=== PATIENT | female | born 1990 | race African-American/Black ===

== ENCOUNTER 2019-12-10 16:35 | Emergency (ER) | payer OTHER ==
[2019-12-10 17:14] LABS: ABS Basophils 0.1 10^3/ul (0-0.2); ABS Eosinophils 0.1 10^3/ul (0-0.6); ABS Monocytes 0.4 10^3/ul (0-0.8); ABS Neutrophils 3.9 10^3/ul (1.5-7.7); Eosinophil % 1.9 %; Hematocrit 33 % (35-47); Hemoglobin 11.6 g/dL (12.0-16.0); Lymphocyte % 30.4 %; Mean Corpuscular HGB Conc 35 g/dL (31-36); Mean Corpuscular Hemoglobin 31 pg (27-31); Mean Corpuscular Volume 89 fL (80-97); Mean Platelet Volume 7.6 fL (7.4-10.4); Platelet Count 252 10^3/uL (150-450); Red Blood Count 3.72 10^6 /uL (3.70-4.87); Red Cell Distribution Width 13 % (10-15); White Blood Count 6.5 10^3/uL (3.5-10.8)
--- NOTE | 2019-12-10 17:14 | ED ---
GI/ HPI - HPI Summary HPI Summary: Patient is a 29 y/o F who is currently six weeks presents to [facility] with complaints of abdominal cramping, back pain, and creamy vaginal discharge. She states that she has been experiencing abdominal cramping typically at night when she is getting ready to lie down. At around 1400 12/10/19, she had onset of back pain. Vaginal discharge is noted but she denies vaginal bleeding. Patient claims that she was diagnosed with BV but has not been prescribed any medications. She is A1 with miscarriage in June of 2019. She is concerned for miscarriage. LNMP was November 02. OBGYN did bloodwork within past week. She has not had US yet. Fever, chills, N/V/D are denied. Constipation is endorsed but patient notes that she had BM this morning. Patient states that urinating aggravates abdominal pain. No PMHx, no PSHx, no tobacco, alcohol, or substance usage. Patient is taking vitamins. She has not had flu shot this season. Home medications and allergies are reviewed. is present in the room. - History of Current Complaint Chief Complaint: EDBackInjuryPain Time Seen by Provider: 12/10/19 16:42 Stated Complaint: CRAMPING/BACK PAIN 6WKS PREG PER PT Hx Obtained From: Patient Onset/Duration: Still Present Severity: Moderate Current Severity: Moderate Pain Intensity: 6 Location of Pain: Other - abdomen, back Pain Characteristics: Cramping Associated Signs and Symptoms: Positive: Back Pain, Constipation, Abdominal Pain , Other: - negative - chills. Negative: Nausea, Vomiting, Diarrhea, Fever Additional Signs & Symptoms: Positive: Vaginal Discharge. Negative: Vaginal Bleeding Aggravating Factor(s): Urination - Allergy/Home Medications Allergies/Adverse Reactions: Allergies Allergy/AdvReac Type Severity Reaction Status Date / Time No Known Allergies Allergy Verified 07/08/19 07:42 PMH/Surg Hx/FS Hx/Imm Hx Endocrine/Hematology History: Denies: Hx Diabetes Cardiovascular History: Denies: Hx Hypertension, Hx Pacemaker/ICD Respiratory History: Denies: Hx Asthma History: Denies: Hx Renal Disease Sensory History: Denies: Hx Hearing Aid Psychiatric History: Denies: Hx Panic Disorder - Immunization History Date of Tetanus Vaccine: PT STATES UNSURE Date of Influenza Vaccine: NONE Infectious Disease History: No Infectious Disease History: Denies: Hx Clostridium Difficile, Hx Hepatitis, Hx Human Immunodeficiency Virus (HIV), Hx of Known/Suspected MRSA, Hx Shingles, Hx Tuberculosis, Hx Known/ Suspected VRE, Hx Known/Suspected VRSA, History Other Infectious Disease, Traveled Outside the [place] in Last 30 Days - Family History Known Family History: Negative: Cardiac Disease, Hypertension, Diabetes - Social History Alcohol Use: None Hx Substance Use: No Substance Use Type: Reports: None Hx Tobacco Use: No Smoking Status (MU): Never Smoked Tobacco Review of Systems Negative: Fever, Chills Gastrointestinal: Other - positive - constipation Positive: Abdominal Pain. Negative: Vomiting, Diarrhea, Nausea Genitourinary: Other - no vaginal bleeding Positive: discharge - vaginal Musculoskeletal: Other - positive - back pain All Other Systems Reviewed And Are Negative: Yes Physical Exam - Summary Physical Exam Summary: Constitutional: Well-developed, Well-nourished, Alert. (-) Distressed Skin: Warm, Dry HENT: Normocephalic; Atraumatic Eyes: Conjunctiva normal Neck: Musculoskeletal ROM normal neck. (-) JVD, (-) Stridor, (-) Tracheal deviation Cardio: Rhythm regular, rate normal, Heart sounds normal; Intact distal pulses; Radial pulses are 2+ and symmetric. (-) Murmur Pulmonary/Chest wall: Effort normal. (-) Respiratory distress, (-) Wheezes, (-) Rales Abd: Soft, (+) suprapubic tenderness, (-) Distension, (-) Guarding, (-) Rebound : Moderate amount of thick white vaginal discharge noted. Cervical os is closed. No CMT noted. Musculoskeletal: (-) Edema Lymph: (-) Cervical adenopathy Neuro: Alert, Oriented x3 Psych: Mood and affect Normal Triage Information Reviewed: Yes Vital Signs On Initial Exam: Initial Vitals Temp Pulse Resp BP Pulse Ox 97.8 F 89 18 105/71 100 12/10/19 16:36 12/10/19 16:36 12/10/19 16:36 12/10/19 16:36 12/10/19 16:36 Vital Signs Reviewed: Yes Procedures - Sedation Patient Received Moderate/Deep Sedation with Procedure: No Diagnostics - Vital Signs Vital Signs Temp Pulse Resp BP Pulse Ox 12/10/19 16:36 97.8 F 89 18 105/71 100 - Laboratory Result Diagrams: 12/10/19 17:01 12/10/19 17:01 Lab Statement: Any lab studies that have been ordered have been reviewed, and results considered in the medical decision making process. - Ultrasound TRANSVAGINAL US Ultrasound Interpretation Completed By: Radiologist Summary of Ultrasound Findings: IMPRESSION: #. Very early IUP with estimated gestational age of 5 weeks 3 days based on mean. gestational sac diameter. Very early pole and yolk sac visible. No perigestational. hemorrhage evident. Negative for suspicious adnexal region lesions. THIS REPORT WAS REVIEWED BY ED PHYSICIAN. GIGU Course/Dx - Course Course Of Treatment: Patient is here with lower abdominal cramping and back pain in the setting of . Patient thinks she is roughly 6 weeks . Patient has been seen by an VACUUM CLEANER REPAIRER with blood or perform an ultrasound. Patient is overall well-appearing and hemodynamically stable. Patient had blood performed which showed a beta hCG level greater than 10,000. Patient had an ultrasound which showed an IUP with no evidence of ectopic . Patient has a closed cervix on vaginal exam. Patient was diagnosed with BV and November by her VACUUM CLEANER REPAIRER but not treated for that. Patient clinically has BV and will be started on Flagyl. - Diagnoses Provider Diagnoses: Lower back pain, Intrauterine Discharge ED - Sign-Out/Discharge Documenting (check all that apply): Patient Departure - discharge - Discharge Plan Condition: Stable Disposition: HOME Prescriptions: metroNIDAZOLE TAB* [Flagyl 250 mg TAB*] 250 mg PO TID 7 Days #21 tab Patient Education Materials: (ED), Back Pain (ED) Referrals: Tiff Hassan MD [Medical Doctor] - Additional Instructions: PLEASE RETURN TO ED FOR SEVERE ABDOMINAL PAIN, VAGINAL BLEEDING, OR FEELING LIKE YOU ARE GOING TO PASS OUT. TAKE ANTIBIOTICS PRESCRIBED AND FOLLOW UP WITH YOUR OBGYN WITHIN THE NEXT THREE DAYS. - Billing Disposition and Condition Condition: STABLE Disposition: Home - Attestation Statements Document Initiated by Taina: Yes Documenting Scribe: ENE SIMMS Provider For Whom Taina is Documenting (Include Credential): ATTILA PELAYO MD Scribe Attestation: ENE Bernstein, scribed for ATTILA PELAYO MD on 12/10/19 at 1848. Scribe Documentation Reviewed: Yes Provider Attestation: The documentation as recorded by the ENE martinez accurately reflects the service I personally performed and the decisions made by me, ATTILA PELAYO MD Status of Taina Document: Viewed
[2019-12-10 17:25] LABS: BUN/Creatinine Ratio 17.3 (8-20); Calcium 9.2 mg/dL (8.6-10.3); EGFR African American 110.5 (>60); EGFR Non-African American 91.4 (>60); Potassium 3.6 mmol/L (3.5-5.0)
--- OUTSIDE RECORDS SUMMARY | 2019-12-10 17:43 | XMS REPORT | Summary of Care ---
:1990 Author Organization [facility] Address [address] [place] [address] Care Team Providers Name Role Phone Aleena Faulkner Primary Care Provider Reason for Visit Reason Comments Sore Throat pt states sore throat for 2 days and some neck stiffness Encounter Details Date Type Department Care Team Description 10/28/2019 Office Visit [facility], Esperanza, Amenorrhea (Primary Dx); Practice PAAnnalise Sore throat; [address] Malaise and fatigue [place], [place] [address] [place] [address] [phone] Allergies No Known Allergiesdocumented as of this encounter (statuses as of 10/28/2019) Medications Medication Sig Dispensed Refills Start Date End Date Status benzoyl peroxide 1 Appl by Topical 42.5 g 1 05/06/2017 Active 5 % Apply route EVERY externally MORNING. Use 15 GelIndications: minutes after Acne vulgaris Erythromycin FERROUS SULFATE Take by mouth. 0 Active ER PO LETROZOLE PO Take by mouth. 0 Active nabumetone Take 1 Tab by 60 Tab 0 08/08/2019 Discontinued (RELAFEN) 500 MG mouth TWICE DAILY. 9 Oral Tab bacitracin-zinc 0.9 g by Topical 1 Tube 0 08/08/2019 Discontinued 500 UNIT/GM route TWICE DAILY. 9 Apply externally Ointment documented as of this encounter (statuses as of 10/28/2019) Active Problems No known active problemsdocumented as of this encounter (statuses as of 2018) Social History Tobacco Use Types Packs/Day Years Used Date Never Smoker 0 Smokeless Tobacco: Never Used Alcohol Use Drinks/Week oz/Week Comments No Sex Assigned at Date Recorded Not on file Job Start Date Occupation Industry Not on file Not on file Not on file Travel History Travel Start Travel End No recent travel history available. documented as of this encounter Last Filed Vital Signs Vital Sign Reading Time Taken Comments Blood Pressure 98/64 10/28/2019 4:10 PM EST Pulse 88 10/28/2019 4:10 PM EST Temperature 35.6 10/28/2019 4:10 PM EST C (96 F) Respiratory Rate - - Oxygen Saturation 98% 10/28/2019 4:10 PM EST Inhaled Oxygen Concentration - - Weight 59.9 kg (132 lb) 10/28/2019 4:10 PM EST Height 162.6 cm (5' 4") 10/28/2019 4:10 PM EST Body Mass Index 22.66 10/28/2019 4:10 PM EST documented in this encounter Patient Instructions Patient InstructionsDodgEsperanza vick PA-C - 10/28/2019 4:00 PM EST1. ordered HCG serum -- will do now -- will call with results 2. .Will send throat swab to lab for culture, will call with results Avoid creamy foods and drink Rest, gargle with warm salt water Push water, soup, juice, tea with honey/lemon OTC Tylenol/Ibuprofen for fever/pain Cool mist vaporizer at bedtime 3. Ordered labs -- will do now -- will call with results Call if not improving or with any questions or concerns documented in this encounter Progress Notes Esperanza Baldwin PA-C - 10/28/2019 4:00 PM EST PATIENT: Leanna Vieyra : 1990 DATE OF SERVICE: 10/28/2019 REFERRING PRACTITIONER: Self-Referred PRIMARY CARE PROVIDER: Aleena Faulkner CHIEF COMPLAINT: Chief Complaint Patient presents with Sore Throat pt states sore throat for 2 days and some neck stiffness Subjective HISTORY OF PRESENT ILLNESS: Leanna Vieyra is a 29-y.o. female who presents with sore throat, neck stiffness, nasal congestionx 2 days NOT SURE IF LMP: 10/05/19, Trying to get Heat gives relief of neck stiffness Home heat is hot, forced air, not using humidifier Denies fever, chills, nausea, vomiting, diarrhea, chest pains, SOB No past medical history on file. No past surgical history on file. No family history on file. Current Outpatient Medications Medication Sig benzoyl peroxide 5 % Apply externally Gel 1 Appl by Topical route EVERY MORNING. Use 15 minutes after Erythromycin FERROUS SULFATE ER PO Take by mouth. LETROZOLE PO Take by mouth. No current facility-administered medications for this visit. No Known Allergies Social History Socioeconomic History Marital status: Single Spouse name: Not on file Number of children: Not on file Years of education: Not on file Highest education level: Not on file Occupational History Not on file Social Needs Financial resource strain: Not on file Food insecurity Worry: Not on file Inability: Not on file Transportation needs Medical: Not on file Non-medical: Not on file Tobacco Use Smoking status: Never Smoker Smokeless tobacco: Never Used Substance and Sexual Activity Alcohol use: No Drug use: No Sexual activity: Yes Partners: Male Lifestyle Physical activity Days per week: Not on file Minutes per session: Not on file Stress: Not on file Relationships Social connections Talks on phone: Not on file Gets together: Not on file Attends jewish service: Not on file Active member of club or organization: Not on file Attends meetings of clubs or organizations: Not on file Relationship status: Not on file Intimate partner violence Fear of current or ex partner: Not on file Emotionally abused: Not on file Physically abused: Not on file Forced sexual activity: Not on file Other Topics Concern Not on file Social History Narrative Works for [employer] and eyes are ok - REVIEW OF SYSTEMS: Skin: negative skin lesions Eyes: negative visual blurring Ears/Nose/Throat: positive rhinorrhea, sore throat, post nasal drip Respiratory: negative cough Cardiovascular: negative chest pain Gastrointestinal: negative abdominal pain, constipation, diarrhea, nausea or vomiting Genitourinary: negative burning on urination, dysuria or vaginal discharge Musculoskeletal: negative arthritis/joint pain. Positive stiff neck Neurologic: negative numbness or tingling of feet or hands Psychiatric: negative anxiety Hematologic/Lymphatic/Immunologic: negative allergies Endocrine: negative diabetes or hot flashes/sweats Objective PHYSICAL EXAMINATION: VITALS: BP 98/64 (BP Location: Right arm, Patient Position: Sitting) | Pulse 88 | Temp 96 F (35.6 C) | Ht 5' 4" (1.626 m) | Wt 132 lb (59.9 kg) | SpO2 98% | BMI 22.66 kg/m Body massindex is 22.66 kg/m. General appearance: alert, mild distress, cooperative, oriented times 3 Skin: Skin color, texture, turgor normal. No rashes or lesions. Head: Normocephalic. No masses, lesions, tenderness or abnormalities Eyes: conjunctivae/corneas clear. PERRL, EOM's intact. Ears: TMs and and canals normal bilaterally Nose/Sinuses: mucosa normal, no rhinorrhea Oropharynx: positive findings: mild oropharyngeal erythema, 1 small white exudate right tonsil Neck: Neck supple, FROM. No cervical or supraclavicular adenopathy. Lungs: Lungs clear. Chest symmetrical. Normal breath sounds. Heart: RRR. No murmur, clicks or gallops. No peripheral edema Rapid strep: negative . IMPRESSION: ICD-9-CM ICD-10-CM 1. Amenorrhea 626.0 N91.2 HCG QUALITATIVE SERUM HCG QUALITATIVE SERUM 2. Sore throat 462 J02.9 STREP A ANTIGEN (AMB POCT) THROAT STREP SCREEN CULTURE 3. Malaise and fatigue 780.79 R53.81 CBC WITH DIFFERENTIAL R53.83 COMPREHENSIVE METABOLIC PANEL COMPREHENSIVE METABOLIC PANEL CBC WITH DIFFERENTIAL Plan PLAN: 1. ordered HCG serum -- will do now -- will call with results 2. .Will send throat swab to lab for culture, will call with results Avoid creamy foods and drink Rest, gargle with warm salt water Push water, soup, juice, tea with honey/lemon OTC Tylenol/Ibuprofen for fever/pain Cool mist vaporizer at bedtime 3. Ordered labs -- will do now -- will call with results Call if not improving or with any questions or concerns Author: Esperanza Baldwin PA-C 10/28/2019 16:08 documented in this encounter Plan of Treatment Name Type Priority Associated Diagnoses Date/Time HCG QUALITATIVE SERUM Lab Routine Amenorrhea 10/28/2019 4:26 PM EST CBC WITH DIFFERENTIAL Lab Routine Malaise and fatigue 10/28/2019 4:26 PM EST COMPREHENSIVE METABOLIC Lab Routine Malaise and fatigue 10/28/2019 4:26 PM EST PANEL THROAT STREP SCREEN CULTURE Lab Routine Sore throat 10/28/2019 4:20 PM EST Name Type Priority Associated Diagnoses Order Schedule HCG QUALITATIVE SERUM Lab Routine Amenorrhea Expected: 10/28/2019 (Approximate), Expires: 10/28/2020 CBC WITH DIFFERENTIAL Lab Routine Malaise and fatigue Expected: 10/28/2019 (Approximate), Expires: 10/28/2020 COMPREHENSIVE METABOLIC Lab Routine Malaise and fatigue Expected: 2018 PANEL (Approximate), Expires: 10/28/2020 STREP A ANTIGEN (AMB POCT) POCT Routine Sore throat Ordered: 10/28/2019 THROAT STREP SCREEN Lab Routine Sore throat 1 Occurrences starting CULTURE 10/28/2019 until 04/25/2020 Health Maintenance Due Date Last Done Comments DTaP/Tdap/Td Vaccines (1 - Tdap) 2001 DEPRESSION SCREENING 2002 PAP SMEAR 2011 INFLUENZA VACCINE (#1) 2019 HEPATITIS A IMMUNIZATION SERIES Aged Out No longer eligible based on patient's age to complete this topic HPV IMMUNIZATION SERIES Aged Out No longer eligible based on patient's age to complete this topic MENINGOCOCCAL VACCINE IMM Aged Out No longer eligible based on patient's age to complete this topic PNEUMOCOCCAL 0-64 YRS Aged Out No longer eligible based on patient's age to complete this topic documented as of this encounter Results Not on filedocumented in this encounter Visit Diagnoses Diagnosis Amenorrhea Absence of menstruation Sore throat Acute pharyngitis Malaise and fatigue Other malaise and fatigue documented in this encounter Insurance Payer Benefit Plan / Subscriber ID Effective Dates Phone Address Type Group [facility] xxxxxxxxxxx 2015-Present Rocco Guarantor Name Account Type Relation to Date of Phone Billing Patient Address Leanna Vieyra Personal/Family 1990 [address] [phone] [place], [place] (Work) [id number] documented as of this encounter
--- OUTSIDE RECORDS SUMMARY | 2019-12-10 17:43 | XMS REPORT | Continuity of Care Document ---
:1990 External Reference #:[id number] Author Name Migue Sotelo M.D. Address [address] [place] [id number] Problems Description No Active Problems Social History Type Date Description Comments Sex Unknown Tobacco Use Start: Unknown Patient has never smoked Smoking Status Reviewed: 11/10/19 Patient has never smoked Allergies, Adverse Reactions, Alerts Description No Known Drug Allergies Medications Active Medications SIG Qnty Indications Ordering Provider Date Letrozole take 2 tablets by 10tabs Migue Sotelo, 11/10/2019 2.5mg Tablets mouth every day M.D. on days 5-9 Plus take one tablet 30tabs Michelle Sim CNM 11/16/2013 27-1mg by mouth one time Tablets daily History Medications Letrozole 1 by mouth every 5tabs Migue Sotelo, 09/22/2019 - 2.5mg Tablets day days 3-7 M.D. 11/10/2019 Medications Administered in Office Medication SIG Qnty Indications Ordering Provider Date PT SCRN Tbco Id as Non User Migue Sotelo M.D. 09/22/2019 Injection Immunizations CPT Code Status Date Vaccine Reaction Lot # [id number] Given 11/16/2013 Tetnus, Diptheria Toxoids And Acellular Pt raffy well. [id number] Pertussis, PT > 7Yrs Old Vital Signs Date Vital Result Comment 11/10/2019 10:41am BP Systolic 104 mmHg BP Diastolic 62 mmHg Height 64.25 inches 5'4.25" Weight 132.00 lb BMI (Body Mass Index) 22.5 kg/m2 Last Menstrual Period [id number] 4 Parity 2 09/22/2019 10:32am BP Systolic 120 mmHg BP Diastolic 62 mmHg Height 64.25 inches 5'4.25" Weight 134.00 lb BMI (Body Mass Index) 22.8 kg/m2 Last Menstrual Period [id number] 4 Parity 2 Results Test Acquired Date Facility Test Result H/L Range Note Laboratory test 09/22/2019 [facility] FSH 2.8 mIU/mL [address] [place] [address] [phone] Lutenizing Hormone 15.8 mIU/mL 2 Thyroid 09/22/2019 [facility] Thyroid Stim 1.5 mIU/L 0.3-4.2 3 [place] [address] Hormone Delta [phone] Laboratory test 09/22/2019 [facility] Prolactin 19.6 Normal 1.0-25.0 [address] [place] [address] ng/mL [phone] HCG < 0.60 mIU/mL 5 Laboratory test 08/05/2019 [facility] Cytology SEE RESULT [address] [place] [address] BELOW [phone] Laboratory test 07/17/2019 [facility] HCG 2.95 mIU/mL [address] [place] [address] [phone] Laboratory test 07/10/2019 [facility] HCG 22.24 mIU/ mL [address] [place] [address] [phone] 1 Normally menstruating females - Follicular phase 3 - 9 - Mid-cycle peak 4 - 23 - Luteal phase 1 - 6 Postmenopausal females 16 - 114 2 Normally menstruating females - Follicular Phase 1 - 18 - Mid-Cycle Peak 24 - 105 - Luteal Phase 0.6 - 20 Postmenopausal females 15 - 62 3 Test Performed by: [place] [address] Hat Maker: Andrzej Nuñez M.D. Ph.D.; CLIA# [id number] 5 <5.0 Negative 5.0 - 25.0 Indeterminate (Repeat testing recommended after 72 hours) >25.0 Positive Perimenopausal women can display HCG levels of up to 20 mIU/mL 6 SEE RESULT BELOW Name: LEANNA LOPEZ : [address]: Osvaldo High DO Acct: [id number] Unit: [id number] AGE: 29 Location: [facility] Re08/05/19 SEX: F Status: REG REF SPEC: [id number] YADIEL: 08/05/19-15[address] [facility] [address]: Osvaldo High DO REQ: [id number] RECD: 08/06/19 STATUS: SOUT _ ORDERED: TP IMAGE ANALYS COMMENTS: NO TRACKING FINAL DIAGNOSIS Negative for Intraepithelial lesion or Malignancy Shift in jeffry suggestive of bacterial vaginosis SPECIMEN(S) RECEIVED A. Ectocervical/Endocervical CYTOLOGY ADEQUACY Specimen Adequacy: Satisfactory of evaluation Transformation zone component identified CYTOLOGY PATIENT INFORMATION Patient Information: HPV: Thin Layer Pap Test w/reflex to high risk HPV RNA testing when ASCUS Actual Specimen Date: 08/05/19 Last Menstrual Date: 07/08/19 Date of Last Specimen: 06/16/13 Previous Abnormal Pap Smears?:N Signed by and Reported on: PAYTON Kaufman(ASCP) 1050 This Pap test was evaluated with the assistance of the [employer] Test Imaging System. Due to cytologic findings at the television and radio repairer microscope, comprehensive manual rescreening by a Virtualization Consultant may be required. The Pap Smear is a screening test designed to aid in the detection of premalignant and malignant conditions of the uterine cervix. It is not a diagnostic procedure and should not be used as the sole means of detecting cervical cancer. Both false- positive and false- negative reports do occur. Depending on your risk status, a Pap smear should be obtained and evaluated every 1-3 years. END OF REPORT DEPARTMENT OF PATHOLOGY, [address] [place] [address] Troy Ye M.D. Director [facility] # [id number] 7 <5.0 Negative 5.0 - 25.0 Indeterminate (Repeat testing recommended after 72 hours) >25.0 Positive Perimenopausal women can display HCG levels of up to 20 mIU/mL 8 <5.0 Negative 5.0 - 25.0 Indeterminate (Repeat testing recommended after 72 hours) >25.0 Positive Perimenopausal women can display HCG levels of up to 20 mIU/mL Procedures Description No Information Available Medical Devices Description No Information Available Encounters Type Date Location Provider Dx Diagnosis Office Visit 09/22/2019 [facility] Migue Sotelo, N97.0 Female infertility 10:40a M.D. associated with anovulation Office Visit 08/05/2019 [facility] Osvaldo High JR, Z01.419 Encntr for molder helper exam 2:30p DO (general) (routine) w/o abn findings Assessments Date Code Description Provider 11/10/2019 N97.0 Female infertility associated with Migue Sotelo M.D. anovulation 09/22/2019 N97.0 Female infertility associated with Migue Sotelo M.D. anovulation 08/05/2019 Z01.419 Encounter for gynecological examination Osvaldo High JR, (general) (routine) without abnormal findings 07/10/2019 O36.80x0 with inconclusive Migue Sotelo M.D. viability, not applicable or unspecified 07/10/2019 O36.80x0 with inconclusive Laboratory viability, not applicable or unspecified Plan of Treatment Future Appointment(s):11/17/2019 2:00 pm - Migue Sotelo M.D. at [facility]11/17/2019 1:45 pm - Ultrasounds at [facility]11/10/2019 - Migue Sotelo M.D.N97.0 Female infertility associated with anovulationComments:will increase letrozole to 5mg and do ultrasound day # 12 Functional Status Description No Information Available Mental Status Description No Information Available Referrals Description No Information Available
--- OUTSIDE RECORDS SUMMARY | 2019-12-10 17:43 | XMS REPORT | Continuity of Care Document ---
:1990 External Reference #:[id number] Author Name Migue Sotelo M.D. Address [address] [place] [id number] Problems Description No Active Problems Social History Type Date Description Comments Sex Unknown Tobacco Use Start: Unknown Patient has never smoked Smoking Status Reviewed: 11/17/19 Patient has never smoked Allergies, Adverse Reactions, [...] Id as Non User Migue Sotelo M.D. 11/17/2019 Injection PT SCRN Tbco Id as Non User Migue Sotelo M.D. 11/10/2019 Injection PT SCRN Tbco Id as Non User Migue Sotelo M.D. 09/22/2019 Injection Immunizations CPT Code Status Date Vaccine Reaction Lot # [id number] Given 11/16/2013 Tetnus, Diptheria Toxoids And Acellular Pt raffy well. [id number] Pertussis, PT > 7Yrs Old Vital Signs Date Vital Result Comment 11/17/2019 2:14pm BP Systolic 102 mmHg BP Diastolic 58 mmHg Height 64.25 inches 5'4.25" Weight 132.00 lb BMI (Body Mass Index) 22.5 kg/m2 Last Menstrual Period [id number] 4 Parity 2 11/10/2019 10:41am BP Systolic 104 mmHg BP Diastolic 62 mmHg Height 64.25 inches 5'4.25" Weight 132.00 lb BMI (Body Mass Index) 22.5 kg/m2 Last Menstrual Period [id number] 4 Parity 2 Results Test Acquired Date Facility Test Result H/L Range Note Laboratory test [facility]SH 2.8 mIU/mL [address] [place] [address] [phone] Lutenizing Hormone 15.8 mIU/mL 2 Thyroid 09/22/2019 [facility] Thyroid Stim 1.5 mIU/L 0.3-4.2 3 [place] [address] Hormone [place] [phone] Laboratory test 09/22/2019 [facility] Prolactin 19.6 Normal 1.0-25.0 [address] [place] [address] ng/mL [phone] HCG < 0.60 mIU/mL 5 Laboratory test 08/05/2019 [facility] Cytology SEE RESULT [address] [place] [address] BELOW [phone] Laboratory test 07/17/2019 [facility] HCG 2.95 mIU/mL [address] [place] [address] [phone] Laboratory test 07/10/2019 [facility] HCG 22.24 mIU/ mL [address] [place] [address] [phone] 1 Normally menstruating females - Follicular phase 3 - 9 - Mid-cycle peak 4 - 23 - Luteal phase 1 - 6 Postmenopausal females 16 - 114 2 Normally menstruating females - Follicular Phase 1 - 18 - Mid-Cycle Peak 24 - 105 - Luteal Phase 0.6 - 20 Postmenopausal females 15 - 62 3 Test Performed by: [address] [address] Doctor Of Podiatric Medicine: Andrzej Nuñez M.D. Ph.D.; CLIA# [id number] 5 <5.0 Negative 5.0 - 25.0 Indeterminate (Repeat testing recommended after 72 hours) >25.0 Positive Perimenopausal women can display HCG levels of up to 20 mIU/mL 6 SEE RESULT BELOW Name: LEANNA LOPEZ : [address]: Osvaldo High DO Acct: [id number] Unit: [id number] AGE: 29 Location: [facility] Re08/05/19 SEX: F Status: REG REF SPEC: [id number] YADIEL: 08/05/19-[address]: Osvaldo High DO REQ: [id number] RECD: 08/06/19 STATUS: SOUT _ ORDERED: TP [...] was evaluated with the assistance of the [employer] Test Imaging System. Due to cytologic findings at the lithopone charger microscope, comprehensive manual rescreening by a Machine Bander And Cellophaner may be required. The Pap Smear is [...] years. END OF REPORT DEPARTMENT OF PATHOLOGY, [address] [place] [address] Troy Ye M.D. Director [facility] # [id number] 7 <5.0 Negative 5.0 - 25.0 Indeterminate (Repeat testing recommended after 72 hours) >25.0 Positive Perimenopausal women can display HCG levels of up to 20 mIU/mL 8 <5.0 Negative 5.0 - 25.0 Indeterminate (Repeat testing recommended after 72 hours) >25.0 Positive Perimenopausal women can display HCG levels of up to 20 mIU/mL Procedures Date Code Description Status 11/17/2019 57740 Echography Transvaginal Completed Medical Devices Description No Information Available Encounters Type Date Location Provider Dx Diagnosis Office Visit 11/10/2019 [facility] Migue Sotelo, N97.0 Female infertility 10:40a M.D. associated with anovulation Office Visit 09/22/2019 [facility] Migue Sotelo, N97.0 Female infertility 10:40a M.D. 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 anovulation 11/17/2019 N97.9 Female infertility, unspecified Ultrasounds 11/10/2019 N97.0 Female infertility associated with Migue Sotelo M.D. anovulation 09/22/2019 N97.0 Female infertility associated with Migue Sotelo M.D. anovulation 08/05/2019 Z01.419 Encounter for gynecological examination Osvaldo High JR, DO (general) (routine) without abnormal findings 07/10/2019 O36.80x0 with inconclusive Migue Sotelo M.D. viability, not applicable or unspecified 07/10/2019 O36.80x0 with inconclusive Laboratory viability, not applicable or unspecified Plan of Treatment 11/10/2019 - Migue Sotelo M.D.N97.0 Female infertility associated with anovulationComments:will increase letrozole to 5mg and do ultrasound day # 12 Functional Status Description No Information Available Mental Status Description No Information Available Referrals Description No Information Available
[2019-12-10 18:26] VITALS: BP 103/75
[2019-12-11 13:32] LABS: Trichomonas vag NAA Female Negative (Negative)
[2019-12-11 13:42] LABS: Chlamydia trachomatis NAA Negative (Negative); Neisseria gonorrhoeae (GC) NAA Negative (Negative)
== END 2019-12-10 18:24 | disposition home or self-care (01) ==
LOC: ED 16:35
DX: M54.5 Low back pain (principal); O23.591 Infection of other part of genital tract in pregnancy, first trimester; B96.89 Other specified bacterial agents as the cause of diseases classified elsewhere; Z3A.01 Less than 8 weeks gestation of pregnancy
CPT/HCPCS: 36415; 76817; 80048; 84702; 85025; 87480; 87491; 87510; 87591; 87661; 99282

== ENCOUNTER 2020-08-04 08:04 | Inpatient (IN) ==
[2020-08-04] MEDS ORDERED: Lactated Ringers 1000 ml BAG 1,000 ML IV ONE ×2 (08:29→17:06)
[2020-08-04 09:53] LABS: Urine Benzodiazepine Screen None Detected (None Detect); Urine Cannabinoids Screen None Detected (None Detect); Urine Opiates Screen None Detected (None Detect)
[2020-08-04 10:25] LABS: ABS Eosinophils 0.1 10^3/ul (0-0.6); ABS Lymphocytes 1.4 10^3/ul (1.0-4.8); ABS Monocytes 0.5 10^3/ul (0-0.8); ABS Neutrophils 4.8 10^3/ul (1.5-7.7); Eosinophil % 1.4 %; Hematocrit 30 % (35-47); Hemoglobin 10.6 g/dL (12.0-16.0); Lymphocyte % 20.9 %; Mean Corpuscular HGB Conc 36 g/dL (31-36); Mean Corpuscular Hemoglobin 32 pg (27-31); Mean Corpuscular Volume 90 fL (80-97); Mean Platelet Volume 7.9 fL (7.4-10.4); Platelet Count 219 10^3/uL (150-450); Red Blood Count 3.28 10^6 /uL (3.70-4.87); Red Cell Distribution Width 14 % (10-15); White Blood Count 6.9 10^3/uL (3.5-10.8)
[2020-08-04] MEDS ORDERED: Oxytocin in LR 20 UNITS/1,000 ML BAG IVPB SCH ×2 (13:15→23:00)
[2020-08-04] MEDS ORDERED: Lactated Ringers 1000 ml BAG 1,000 ML IV SCH ×3 (13:15→23:00)
[2020-08-04] MEDS ORDERED: Oxytocin in LR 20 UNITS/1,000 ML BAG IVPB ONE (13:20)
[2020-08-04] MEDS ORDERED: OBEPIDURAL 250 ML EPIDURAL ONE (16:30)
[2020-08-04] MEDS ORDERED: Bupivacaine 0.25% SDV PF 10 ML VIAL INJ ONE (16:33)
[2020-08-04] MEDS ORDERED: Phenylephrine 40 mcg/mL 10mL (400mcg) SYRINGE IV PUSH PRN ×2 (17:06)
[2020-08-04] MEDS ORDERED: Sodium Citrate/Citric Acid LIQ 15 ML UDC PO PRN (17:06)
[2020-08-04] MEDS ORDERED: OBEPIDURAL 250 ML EPIDURAL SCH (18:00)
[2020-08-04] MEDS ORDERED: Dibucaine 1% OINT 28.35 GM TUBE PR PRN (22:47)
[2020-08-04] MEDS ORDERED: Witch Hazel PAD JAR TOPICAL PRN (22:47)
[2020-08-05] MEDS ORDERED: Ammonia Inhalant 1 EA AMP ONE (00:33)
[2020-08-05 06:38] LABS: ABS Eosinophils 0.1 10^3/ul (0-0.6); ABS Lymphocytes 1.5 10^3/ul (1.0-4.8); ABS Monocytes 0.8 10^3/ul (0-0.8); ABS Neutrophils 8.7 10^3/ul (1.5-7.7); Eosinophil % 0.6 %; Hematocrit 31 % (35-47); Hemoglobin 10.4 g/dL (12.0-16.0); Lymphocyte % 13.3 %; Mean Corpuscular HGB Conc 34 g/dL (31-36); Mean Corpuscular Hemoglobin 31 pg (27-31); Mean Corpuscular Volume 91 fL (80-97); Mean Platelet Volume 7.7 fL (7.4-10.4); Platelet Count 220 10^3/uL (150-450); Red Cell Distribution Width 14 % (10-15); White Blood Count 11.1 10^3/uL (3.5-10.8)
[2020-08-06 07:51] VITALS: BP 98/66
[2020-08-06] MEDS ORDERED: Tetan/Diph/Pertus SYR(Tdap) 0.5 ML SYR(BOOSTRIX) use SYR contains LATEX IM ONE (10:35)
== END 2020-08-06 11:05 | disposition home or self-care (01) | DRG 560 ==
LOC: MCHOBOUT 08:04 → MCHOB 08:29
PROVIDERS: ADMIT Midwife; ATTEND Midwife